=== PATIENT | male | born 1960 | race Caucasian/White ===

== ENCOUNTER → 2018-04-01 | Day surgery (SDC) | payer OTHER ==
[~2018-04-01] MED LIST: Dextrose 5%-0.45% NaCl 1,000 ML IV SCH; Midazolam 1 MG/ML 2 ML SDV IV ONE; Midazolam 1 MG/ML 2 ML SDV ONE; Sodium Chloride 0.9% 10 ML Syringe FLUSH PRN; fentaNYL 100 MCG/2 ML SDV IV ONE; fentaNYL 100 MCG/2 ML SDV ONE
--- NOTE | 2018-04-01 09:51 | OR ---
DATE: 04/01/2018 PROCEDURES: Total colonoscopy, narrow-band imaging, and multiple pinch biopsies. INSTRUMENT USED: PCF-H180 AL Olympus video colonoscope. PREMEDICATIONS: Fentanyl 100 mcg intravenous, Versed 4 mg intravenous. Nasal O2 cannula. The procedure was done under pulse oximetry, BP recording, and surveillance dual rate officer. INDICATION: The patient with chronic diarrhea unexplained and not responsive to medical measures. Colonoscopic examination is done for detection of any polypoid lesions and removal. Biopsies to be obtained for microscopic colitis. Endoscopic hemostasis therapy if needed. DESCRIPTION OF PROCEDURE: Initial rectal exam was unremarkable. Rigid anoscopy was normal. The colonoscope was passed with ease up to the ileocecal area. Photographs were taken of the normal-appearing cecum identified by thin-lipped ileocecal folds, preventing further advancement of the instrument to visualize terminal ileum. No bleeding was noted from any of the visualized areas at the commencement of the examination. No stricture. No vascular ectasia. No large isolated ulcerations seen. No evidence of diffuse inflammatory bowel disease in the form of friability, contact bleeding, or ulcerations. Probing the proximal sides of folds and flexures, using adequate distention and clearing of the stool material, withdrawal of the scope was made. The bowel preparation was found to be adequate. Multiple pinch biopsies were taken from the normal-appearing mucosa of the mid transverse colon, mid descending colon, and rectosigmoid, and sent for any histopathologic evidence of microscopic colitis. In the proximal sigmoid colon, 3-mm sized benign-appearing polyp was noted. NBI views were obtained. Photographs were taken. The tissue was removed by pinch biopsy. No bleeding was noted from any of the visualized areas at the completion of examination. IMPRESSION: Diminutive sigmoid polyp. The patient tolerated the procedure well. [facility] /[id number]
[2018-04-01 10:06] VITALS: BP 119/100
== END | disposition home or self-care (01) ==
LOC: DL.ENDO 06:11
PROVIDERS: ATTEND Internal Medicine Gastroenterology
DX: K52.9 Noninfective gastroenteritis and colitis, unspecified (principal); D12.5 Benign neoplasm of sigmoid colon; E66.09 Other obesity due to excess calories
CPT/HCPCS: 45380; J2250; J3010; J7042

== ENCOUNTER 2020-06-09 08:36 | Emergency (ER) | payer OTHER ==
[2020-06-09] MEDS ORDERED: Fluorescein 1 MG Ophth Strip EYERT ONE (08:53)
[2020-06-09] MEDS ORDERED: Proparacaine 0.5% Ophth Soln 15 ML Bottle EYERT STA (08:53)
[2020-06-09 08:55] VITALS: BP 133/93; PULSE 95
[2020-06-09] MEDS ORDERED: Tetracaine HCl/PF 0.5% 4 ML Bottle ONE (08:58)
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
== END 2020-06-09 10:07 | disposition home or self-care (01) ==
LOC: DL.ED 08:36
DX: S05.12XA Contusion of eyeball and orbital tissues, left eye, initial encounter (principal); E66.9 Obesity, unspecified; Z88.8 Allergy status to other drugs, medicaments and biological substances; Z68.30 Body mass index [BMI] 30.0-30.9, adult; Y04.0XXA Assault by unarmed brawl or fight, initial encounter
CPT/HCPCS: 99283

== ENCOUNTER 2022-09-08 12:22 | Emergency (ER) | payer OTHER ==
[2022-09-08 12:34] VITALS: BP 144/77; PULSE 81
== END 2022-09-08 13:43 | disposition home or self-care (01) ==
LOC: DL.ED 12:22
DX: S16.1XXA Strain of muscle, fascia and tendon at neck level, initial encounter (principal); S00.03XA Contusion of scalp, initial encounter; W00.0XXA Fall on same level due to ice and snow, initial encounter
CPT/HCPCS: 70450; 72125; 99283

== ENCOUNTER 2023-02-08 05:38 | Day surgery (SDC) | payer OTHER ==
[~2023-02-08 05:38] MED LIST changes: -Dextrose 5%-0.45% NaCl 1,000 ML IV SCH; -Midazolam 1 MG/ML 2 ML SDV IV ONE; -Midazolam 1 MG/ML 2 ML SDV ONE; +Sodium Chloride 0.9% 10 ML Syringe FLUSH SCH; -fentaNYL 100 MCG/2 ML SDV IV ONE; -fentaNYL 100 MCG/2 ML SDV ONE
[2023-02-08] MEDS ORDERED: Dextrose 5%-0.45% NaCl 1,000 ML IV SCH (06:00)
[2023-02-08] MEDS ORDERED: fentaNYL 100 MCG/2 ML SDV ONE (06:12)
[2023-02-08] MEDS ORDERED: Midazolam 1 MG/ML 2 ML SDV ONE (06:12)
[2023-02-08] MEDS ORDERED: fentaNYL 100 MCG/2 ML SDV IV ONE ×2 (06:58→06:59)
[2023-02-08] MEDS ORDERED: Midazolam 1 MG/ML 2 ML SDV IV ONE ×4 (06:59→07:01)
[2023-02-08 09:11] VITALS: BP 110/66
[2023-02-08 09:13] VITALS: PULSE 60
== END 2023-02-08 09:05 | disposition home or self-care (01) ==
LOC: DL.ENDO 05:38
PROVIDERS: ATTEND Internal Medicine Gastroenterology
DX: K52.9 Noninfective gastroenteritis and colitis, unspecified (principal); K64.4 Residual hemorrhoidal skin tags; E66.09 Other obesity due to excess calories; K21.9 Gastro-esophageal reflux disease without esophagitis; M10.9 Gout, unspecified; Z88.8 Allergy status to other drugs, medicaments and biological substances; Z68.30 Body mass index [BMI] 30.0-30.9, adult
CPT/HCPCS: J2250; J3010; J7042

== ENCOUNTER 2023-02-12 06:15 | Day surgery (SDC) | payer OTHER ==
[~2023-02-12 06:15] MED LIST changes: +Dextrose 5%-0.45% NaCl 1,000 ML IV SCH
[2023-02-12] MEDS ORDERED: Propofol 200 MG/20 ML SDV ONE (06:58)
[2023-02-12] MEDS ORDERED: Lidocaine 2% 20 ML MDV ONE (06:59)
[2023-02-12 09:11] VITALS: BP 122/80; PULSE 53
== END 2023-02-12 09:10 | disposition home or self-care (01) ==
LOC: DL.ENDO 06:15
PROVIDERS: ATTEND Internal Medicine Gastroenterology
DX: K25.9 Gastric ulcer, unspecified as acute or chronic, without hemorrhage or perforation (principal); K21.9 Gastro-esophageal reflux disease without esophagitis; K31.89 Other diseases of stomach and duodenum; E66.09 Other obesity due to excess calories; F10.10 Alcohol abuse, uncomplicated; M43.22 Fusion of spine, cervical region; M10.9 Gout, unspecified; Z88.8 Allergy status to other drugs, medicaments and biological substances; Z91.011 Allergy to milk products; Z68.30 Body mass index [BMI] 30.0-30.9, adult; Z79.899 Other long term (current) drug therapy
CPT/HCPCS: 00731; 43239; 87077; J7042

== ENCOUNTER 2025-06-14 11:31 | Emergency (ER) | payer BC, OTHER ==
[2025-06-14 13:09] VITALS: BP 145/64; PULSE 84
== END 2025-06-14 12:50 | disposition home or self-care (01) ==
LOC: DL.ED 11:31
DX: N13.9 Obstructive and reflux uropathy, unspecified (principal); E66.9 Obesity, unspecified; Z68.28 Body mass index [BMI] 28.0-28.9, adult
CPT/HCPCS: 51701; 99283